=== PATIENT | male | born 1995 | race Caucasian/White ===

== ENCOUNTER 2020-06-07 09:46 | Day surgery (SDC) | payer OTHER ==
[2020-05-31 14:50] VITALS: BMI 38.5
[~2020-06-07 09:46] MED LIST: DEXAMETHASONE SOD PHOSPHATE 10 MG/ML 1 ML VIAL IV ONE; HYDROmorphone 0.5 MG/0.5 ML SYRINGE IVP PRN; LACTATED RINGERS 1,000 ML IV SCH; ONDANSETRON 4 MG/2 ML VIAL IVP ONE; ceFAZolin 3 GM in SODIUM CHLORIDE 0.9% 100 ML IVPB ONE
[2020-06-07] MEDS ORDERED: ONDANSETRON 4 MG/2 ML VIAL ONE (10:11)
[2020-06-07] MEDS ORDERED: MIDAZOLAM 2 MG/2 ML VIAL IV ONE (10:31)
[2020-06-07] MEDS ORDERED: HYDROmorphone (PF) 1 MG/ML ONE (11:44)
[2020-06-07] MEDS ORDERED: PROPOFOL 10 MG/ML 20 ML VIAL IV ONE (11:44)
[2020-06-07] MEDS ORDERED: SUCCINYLCHOLINE CHLORIDE VIAL 200 MG/10 ML VIAL IV ONE (11:44)
[2020-06-07] MEDS ORDERED: LIDOCAINE 1% INJ 10MG/ML (20 ML MDV) ONE (11:44)
[2020-06-07] MEDS ORDERED: fentaNYL (PF) 50 MCG/ML 2 ML AMP ONE (11:44)
[2020-06-07] MEDS ORDERED: MIDAZOLAM 2 MG/2 ML VIAL ONE (11:44)
[2020-06-07] MEDS ORDERED: ceFAZolin 1,000 MG in SODIUM CHLORIDE 0.9% 1,000 ML IRRIGATION ONE (12:27)
[2020-06-07] MEDS ORDERED: LACTATED RINGERS 1,000 ML IV ONE (13:50)
[2020-06-07 14:19] VITALS: TEMP 97.2
[2020-06-07 15:00] VITALS: RESP 18
[2020-06-07] MEDS ORDERED: MEPERIDINE 50 MG/ML SYRINGE IVP ONE (15:07)
[2020-06-07] MEDS ORDERED: HYDROcodone/APAP 7.5-325MG 1 EACH TAB PO ONE (16:05)
[2020-06-07] MEDS ORDERED: HYDROcodone/APAP 7.5-325MG 1 EACH TAB ONE (16:06)
[2020-06-07 18:20] VITALS: BP 140/78; PULSE 80
--- NOTE | 2020-06-08 06:09 | OP ---
OPERATIVE REPORT DATE OF PROCEDURE: 06/07/2020 PREOPERATIVE DIAGNOSIS: Right knee anterior cruciate ligament rupture. POSTOPERATIVE DIAGNOSES: 1. Right knee anterior cruciate ligament rupture. 2. Right knee thickened infrapatellar and medial shelf plica. PROCEDURES PERFORMED: 1. Right knee anterior cruciate ligament reconstruction with hamstring autograft. 2. Right knee arthroscopic lysis of adhesions. SURGEON: Manolo Saeed MD FLORAL ARRANGER: Cameron DOVER. ANESTHESIA: General endotracheal. ESTIMATED BLOOD LOSS: Minimal. TOURNIQUET: None. DRAINS: None. COMPLICATIONS: None apparent. DISPOSITION: Postanesthesia care unit. INDICATIONS: Amish is a 24-year-old male who injured his right knee. Physical examination and MRI are consistent with a complete rupture of the anterior cruciate ligament. A long discussion with him with regards to treatment options. At this point, he does wish to proceed with operative intervention. Risks were explained to the patient which include, but are not limited to risk of infection, nerve damage, bleeding, pain, instability, deep vein thrombosis which could lead to fatal pulmonary embolism and graft rerupture. The patient understands these risks and wished to proceed with surgical procedure. EXAMINATION UNDER ANESTHESIA: Range of motion: Right full, left full. Effusion: Right mild, left none. Elliott: Right increased 5 mm with soft end point. Left normal with a good end point. Pivot shift: Right grade 1, left grade 0. Posterior drawer: Right normal with good end point. Left normal with good end point. Varus laxity: Right none, left none. Valgus laxity: Right none, left none. External rotation: Right normal, left normal. ARTHROSCOPIC FINDINGS: Superior pouch normal. Medial gutter thickened medial shelf plica. Lateral gutter was normal. Patella had grade 2 change on the medial facet of the patella. The lateral facet cartilage was intact. The trochlea normal chondral surfaces. Patellar tracking was normal. Medial femoral condyle normal chondral surfaces. Medial tibial plateau normal chondral surfaces. Medial meniscus was normal. Lateral femoral condyle normal chondral surfaces. Lateral tibial plateau normal chondral surfaces. Lateral meniscus was normal. Anterior cruciate ligament: Complete midsubstance rupture of the anterior cruciate ligament. Posterior cruciate ligament normal. The infrapatellar notch thickened after plica as well as dense infrapatellar adhesions. DETAILS OF THE PROCEDURE: Patient identified in preoperative holding area. Surgical site was marked by both the patient and myself. He was given 2 grams of Ancef IV for prophylactic purposes. He was then transported to the operative suite. He was placed supine on the operative table. General anesthetic was then administered and dosed per the anesthesia department without apparent complication. Examination under anesthesia was then performed of both knees. The findings noted as above. Tourniquet was then placed high on the right upper thigh well-padded in preparation for surgery. The patient's right lower extremity was than prepped and draped in usual sterile fashion. Standard surgical pause was undertaken to ensure that we were operating on the correct site and that appropriate preoperative antibiotics had been given. All staff in the room are in agreement and we proceeded. The knee was then inflated 120 mL sterile saline solution. This was done to gradually distend the joint. A standard inferolateral portal was then made. A 30 degree arthroscope was inserted in the suprapatellar pouch. The arthroscopic pump pressure was set to 60 mmHg maintained at that level throughout the entire case. Next, utilizing an 18-gauge spinal needle to topically localize the placement, the inferomedial port was made under direct visualization. Standard diagnostic arthroscopy of the knee was then performed. The findings noted above. Attention was first drawn to the infrapatellar notch. Very thickened infrapatellar plica as well as medial shelf plica. This was released with a biter and debrided back to stable tissue utilizing synovial shaver. The dense infrapatellar adhesions which were also lysed with the ArthroCare wand. At this point in time, we proceeded with harvesting of the hamstring tendons for autograft. The arthroscope was removed from the knee. The leg was then exsanguinated with an Esmarch dressing. The tourniquet was inflated to 250 mmHg. A small longitudinal incision was then made approximately 1.5 cm medial to the tibial tubercle. Dissection was carried down through the subcutaneous tissues until the sartorius tendon was identified. The sartorius was then incised using an L-shaped incision. The sartorius tendon was then retracted and the gracilis and semitendinosus tendons were identified. These tendons were then tagged with 2-0 Vicryl sutures. The tendon was then released from their insertion onto the tibia and stripped of soft tissue attachments using a blunt technique as well as using scissors. The tendons were then harvested using a closed tendon stripper. The tendons were then taken to the back table where muscle fibers were scraped off the tendons. The ends of the tendons were then whip stitched using a #2 Orthocord suture. The tendons were then double the form of 4 stranded hamstring graft. Graft diameter was measured at 9 mm. medical assistant secretary was critical at this portion of the case as they provided adequate exposure to safely harvest the hamstring tendons. In addition the ophthalmic medical assistant completed the graft preparation allowing for decreased operating time, further enhancing the safety of the procedure. Attention was then returned to the knee. The remnants of the anterior cruciate ligament were debrided utilizing arthroscopic shaver. The Howard ACL guide was then placed into the knee with the held flush against the lateral wall of the notch. The knee was then brought into full extension and the tibial guide pin drilled from the anteromedial tibia into the knee. The knee was then flexed and arthroscopically assessed to ensure that it was in the proper position. The tibial tunnel was then created with using a cannulated reamer equaling the size of the hamstring graft, which was 9 mm. A minimal lateral notchplasty was then performed utilizing synovial shaver in a sajan-type fashion. The femoral origin of the anterior cruciate ligament could be identified. The femoral guide pin was then placed at the origin of the anterior cruciate ligament with planned back wall thickness of 1 mm. The femoral tunnel was then created using a cannulated reamer to a depth of 25 mm. The size of the reamer was again the same size of the hamstring graft, which was 9 mm. Next, a 4.5 mm cannulated drill was used to penetrate the lateral femoral cortex. The Biomet toggle lock femoral fixation device was opened. The graft was placed through the closed loop of the device. A pin was then passed through the tibial and femoral tunnels and out through the soft tissues of the lateral thigh. The lead sutures of the fixation device were then placed in the eyelet fixation device and advanced through the tunnels and soft tissues lateral thigh. The device was then advanced through the tunnels and locked down to the lateral femoral cortex. The closed loop was then shortened and the graft advanced to the base of the femoral tunnel. Femoral fixation was excellent. The graft was then cycled 30 times. No impingement was noted on the intercondylar roof or lateral intercondylar wall. Tibial fixation was then achieved using a bioabsorbable Intrafix screw and sheath. This was performed at 20 degrees of flexion with a posterior drawer force applied to the tibia. This resulted in excellent fixation. The arthroscope was then placed back into the knee and the graft again visualized. Tension of the graft seemed to be excellent. No impingement was noted. Full range of motion was noted. The Elliott test was noted to be normal. At this point, the arthroscopic equipment was removed from the knee. The tourniquet was deflated. Total tourniquet time for the procedure was 50 minutes. Next, the sartorius was repaired with 2-0 Vicryl. The fascia was closed with 2-0 Vicryl interrupted suture. Subcutaneous tissue closed with 2-0 Vicryl interrupted suture in the arthroscopic portals were closed with 3-0 nylon interrupted suture. Sterile compressive dressing was then applied. The patient was placed into a hinged knee brace, locked in full extension. The patient tolerated the procedure well and was transferred to recovery room in good condition. Rehab Plan: Routine anterior cruciate ligament reconstruction rehab protocol. MMODL / IJN: [id number] /
== END 2020-06-07 17:30 | disposition home or self-care (01) ==
LOC: OR 09:46
PROVIDERS: ATTEND Orthopaedic Surgery Sports Medicine
DX: S83.511A Sprain of anterior cruciate ligament of right knee, initial encounter (principal); M67.51 Plica syndrome, right knee; E66.01 Morbid (severe) obesity due to excess calories; Z88.0 Allergy status to penicillin; X58.XXXA Exposure to other specified factors, initial encounter; Y93.61 Activity, american tackle football; Z68.38 Body mass index [BMI] 38.0-38.9, adult
CPT/HCPCS: 29888; C1713; J2250; J0330; J1100; J2175; J0690 ×2; J2405; J2001; J3010; J1170; J2704